=== PATIENT | female | born 1945 | race Caucasian/White ===

== ENCOUNTER 2021-11-19 09:39 | Emergency (ER) | payer OTHER ==
[2021-11-19 09:59] VITALS: BP 119/57; PULSE 82; TEMP 98.1; BMI 29.6
[2021-11-19] MEDS ORDERED: ACETAMINOPHEN 500 MG TABLET (FP) PO ONE (10:15)
[2021-11-19] MEDS ORDERED: ACETAMINOPHEN 325 MG TABLET (FP) ONE (10:18)
== END 2021-11-19 11:10 | disposition home or self-care (01) ==
LOC: JER 09:39
DX: M25.562 Pain in left knee (principal)
CPT/HCPCS: 73562-TC-LT-FY; 99283-25